=== PATIENT | female | born 1940 | race Caucasian/White ===

== ENCOUNTER → 2017-10-31 | Outpatient (CLI) | payer MEDICARE | END | disposition home or self-care (01) | LOC: PCVCCLINIC 11:05 | PROVIDERS: ATTEND Internal Medicine Cardiovascular Disease | DX: G45.9 Transient cerebral ischemic attack, unspecified (principal); I25.10 Atherosclerotic heart disease of native coronary artery without angina pectoris; E78.00 Pure hypercholesterolemia, unspecified; I10 Essential (primary) hypertension; Z79.82 Long term (current) use of aspirin | CPT/HCPCS: 93005; G0463 ==

== ENCOUNTER → 2018-08-08 | Outpatient (CLI) | payer MEDICARE ==
--- NOTE | 2018-08-08 09:52 | PCVCIMAG ---
APPROVED REPORT Indications Stenosis Doppler Spectral Velocity Analysis PSV / EDVPSV / EDV ECA (R) 89 / 6 cm/sECA (L) 93 / 6 cm/s dICA (R) 96 / 23 cm/sdICA (L) 78 / 22 cm/s Karina (R) 70 / 22 cm/smICA (L) 85 / 22 cm/s pICA (R) 76 / 17 cm/spICA (L) 102 / 23 cm/s Bulb (R) 69 / 17 cm/sBulb (L) 79 / 22 cm/s dCCA (R) 81 / 17 cm/sdCCA (L) 89 / 18 cm/s mCCA (R) 99 / 16 cm/smCCA (L) 89 / 18 cm/s Vert (R) 39 / 6 cm/sVert (L) 46 / 11 cm/s ICA/CCA 1.19ICA/CCA 1.15 Findings The right carotid bulb has moderate heterogeneous plaque. The right proximal internal carotid artery shows <40% stenosis. The right common carotid artery shows no significant stenosis. The right external carotid artery shows no significant stenosis. The left carotid bulb has moderate calcified plaque. The left proximal internal carotid artery shows <40% stenosis. The left common carotid artery shows no significant stenosis. The left external carotid artery shows no significant stenosis. Conclusion 1. Right internal carotid artery stenosis (<40%) 2. Left internal carotid artery stenosis (<40%) 3. Antegrade vertebral flow
== END | disposition home or self-care (01) ==
LOC: PCVCIMAG 08:46
PROVIDERS: ATTEND Internal Medicine Cardiovascular Disease
DX: I65.23 Occlusion and stenosis of bilateral carotid arteries (principal); I25.10 Atherosclerotic heart disease of native coronary artery without angina pectoris; E78.00 Pure hypercholesterolemia, unspecified; I10 Essential (primary) hypertension; I44.7 Left bundle-branch block, unspecified; Z86.73 Personal history of transient ischemic attack (TIA), and cerebral infarction without residual deficits; Z79.82 Long term (current) use of aspirin
CPT/HCPCS: 36415; 80061; 93005; 93880; G0463